=== PATIENT | female | born 1985 | race Caucasian/White ===

== ENCOUNTER → 2018-08-26 | Outpatient (REF) | payer OTHER ==
[~2018-08-26] MED LIST: MAPA500T2 PO; MOTR200T44 PO; PRENTAB55 PO
[2018-08-31 17:45] LABS: HPV HYBRID CAPTURE II Negative (Negative)
== END ==
LOC: M LAB REF 17:37
PROVIDERS: ATTEND Advanced Practice Midwife
DX: Z12.4 Encounter for screening for malignant neoplasm of cervix (principal)